=== PATIENT | female | born 1960 | race Asian ===

== ENCOUNTER 2017-07-11 14:18 | Emergency (ER) | payer BC ==
[~2017-07-11] VITALS: Ht 151.1 cm; Wt 52.2 kg
[2017-07-11 14:23] VITALS: BP 152/108
--- NOTE | 2017-07-11 14:28 | NUR ---
57F DROPPED OFF BY FAMILY C/O URINARY BURNING AND URINARY FREQUENCY X THIS MORNING. DENIES N/V/D; SKIN IS PINK/WARM/DRY; AAOX4 WITH EVEN AND STEADY GAIT; LUNGS CLEAR BL; PT DENIES ANY FEVER, CP, SOB, OR COUGH AT THIS TIME; PATIENT STATES PAIN OF 10/10 AT THIS TIME; PATIENT POSITIONED FOR COMFORT; HOB ELEVATED; BEDRAILS UP X2; BED DOWN. ER MD MADE AWARE OF PT STATUS.
--- NOTE | 2017-07-11 14:29 | NUR ---
Patient ambulated to bed 7. RN evaluating patient at bedside.
--- NOTE | 2017-07-11 14:43 | NUR ---
Dr. Woodruff evaluating patient at bedside.
[2017-07-11] MEDS ORDERED: cefTRIAXone 1,000 MG in LIDOCAINE 1% ***ER ONLY *** 2.1 ML IM SCH (15:00)
[2017-07-11] MEDS ORDERED: KETOROLAC 60 MG/2 ML VIAL IM SCH (15:00)
--- NOTE | 2017-07-11 15:45 | NUR ---
Dr. Woodruff re-evaluating patient at bedside.
[2017-07-11 15:58] VITALS: BP 119/69
--- NOTE | 2017-07-11 15:58 | NUR ---
Patient discharged with v/s stable. Written and verbal after care instructions given and explained. Patient alert, oriented and verbalized understanding of instructions. Ambulatory with steady gait. All questions addressed prior to discharge. ID band removed. Patient advised to follow up with PMD. Rx of LEVAQUIN & PYRIDIUM given. Patient educated on indication of medication including possible reaction and side effects. Opportunity to ask questions provided and answered.
== END 2017-07-11 15:58 | disposition home or self-care (01) ==
LOC: MED 14:18
DX: N39.0 Urinary tract infection, site not specified (principal)
CPT/HCPCS: 81002; 81025; 96372; 99284; J0696; J1885; J2001